=== PATIENT | female | born 1990 | race African-American/Black ===

== ENCOUNTER 2016-07-10 17:45 | Emergency (ER) | payer BC, OTHER ==
[2016-07-10 17:49] VITALS: BP 145/93; PULSE 87; TEMP 97.7; BMI 31.6
--- NOTE | 2016-07-10 18:34 | PDOC ---
History of Present Illness - General Chief Complaint: Pain Stated Complaint: BACK PAIN Time Seen by Provider: 07/10/16 18:11 History Source: Patient Exam Limitations: No Limitations - History of Present Illness Initial Comments: CHIEF COMPLAINT: 25 y/o afebrile female with PMH "kidney infections" c/o left side and pelvic pain since yesterday. HISTORY OF PRESENT ILLNESS: The patient states the pain was intermittent but around 2pm it became constant and she rates it an 8/10. She denies f/c, n/v/d, CP, SOB, hematuria, dysuria, increased urinary frequency. her informs me that this happens every few months, after completion of her menstrual cycle. The patient refused to take OTC medication because she hates to take pills. Vital signs on arrival are within normal limits. REVIEW OF SYSTEMS: GENERAL/CONSTITUTIONAL: No fever/chills. No weakness. No weight change. HEAD, EYES, EARS, NOSE AND THROAT: No change in vision. No ear pain or discharge. No sore throat. CARDIOVASCULAR: No chest pain or shortness of breath. RESPIRATORY: No cough, wheezing, or hemoptysis. GASTROINTESTINAL: +left side and pelvic pain. No nausea, vomiting, diarrhea, constipatin. GENITOURINARY: No dysuria, frequency, or change in urination. MUSCULOSKELETAL: No joint or muscle swelling or pain. No neck or back pain. SKIN: No rash or easy bruising. NEUROLOGIC: No headache, vertigo, loss of consciousness, or loss of sensation. PHYSICAL EXAM: GENERAL: The patient is awake, alert, and fully oriented, in no acute distress. SHe is well appearing and ambulatory. HEAD: Normal with no signs of trauma. ENT: Pupils equal, round and reactive to light, extraocular movements intact, sclera anicteric, conjunctiva clear. Neck supple. LUNGS: Clear to auscultation bilaterally. Normal excursion. No respiratory distress or use of accessory muscles. CV: RRR, S1/S2, no MRG. Cap refill < 2 sec. ABDOMEN: Soft, non-distended, TTP of left pelvic region. Pain with palpation of left flank BACK: No CVA TTP b/l. EXTREMITIES: Normal range of motion, no edema. NEUROLOGICAL: Normal speech, normal gait. CN II-XII grossly intact. PSYCH: Normal mood, normal affect. SKIN: Warm, dry, normal turgor, no rashes or lesions noted. Past History - Past Medical History Allergies/Adverse Reactions: Allergies Allergy/AdvReac Type Severity Reaction Status Date / Time No Known Allergies Allergy Verified 07/10/16 17:47 Home Medications: Ambulatory Orders Cephalexin Monohydrate [Keflex -] 500 mg PO BID #14 capsule 12/18/14 Cephalexin Monohydrate [Keflex -] 500 mg PO BID #14 capsule 07/10/16 - Immunization History Immunization Up to Date: Yes - Psycho/Social/Smoking Cessation Hx Anxiety: No Suicidal Ideation: No Smoking History: Current some day smoker Have you smoked in the past 12 months: Yes Number of Cigarettes Smoked Daily: 5 Information on smoking cessation initiated: No Hx Alcohol Use: No Drug/Substance Use Hx: No Substance Use Type: None *Physical Exam - Vital Signs Last Vital Signs Temp Pulse Resp BP Pulse Ox 97.7 F 87 18 145/93 100 07/10/16 17:47 07/10/16 17:47 07/10/16 17:47 07/10/16 17:47 07/10/16 17:47 Medical Decision Making - Medical Decision Making A/P: 25 y/o afebrile female here for suspected kidney infection. However, she has no urinary complaints. I suspect she has ovarian cysts. Plan is as follows : 1. hcg/UA/culture 2. Transvaginal Ultrasound hcg - negative PO Motrin Transvaginal Ultrasound IMPRESSION: Unremarkable exam UA with Positive Nitrite and 3+ leuks. Will treat for UTI. Sent rx for keflex to her pharmacy and instructed to take entire course. Instructed her to drink at least 64oz of water daily and f/u with her doctor within 1 week. Instructed her to return to the ER with any worsening or concerning symptoms. The patient verbalizes understanding of all instructions, has no further questions and is awaiting discharge. *DC/Admit/Observation/Transfer Diagnosis at time of Disposition: UTI (urinary tract infection) Qualifiers: Urinary tract infection type: acute cystitis Hematuria presence: without hematuria Qualified Code(s): N30.00 - Acute cystitis without hematuria - Discharge Dispostion Disposition: HOME Condition at time of disposition: Good - Prescriptions Prescriptions: Cephalexin Monohydrate [Keflex -] 500 mg PO BID #14 capsule - Referrals Referrals: Julia Pelayo MD [Primary Care Provider] - 1 week - Patient Instructions Printed Discharge Instructions: DI for Urinary Tract Infection (UTI) Additional Instructions: Discharge Instructions: -You have a Urinary tract infection. You do not have a kidney infection -Please take Motrin for pain -Please take the prescription antibiotics as prescribed and complete entire 7 days -Drink at least 64oz of water daily -Follow up with your doctor within 1 week -Return to the ER with any worsening or concerning symptoms.
[2016-07-10 19:19] LABS: URINE APPEARANCE CLEAR; URINE BILIRUBIN NEGATIVE (NEGATIVE); URINE BLOOD NEGATIVE (NEGATIVE); URINE COLOR LTYELLOW; URINE GLUCOSE (UA) NEGATIVE (NEGATIVE); URINE KETONE NEGATIVE (NEGATIVE); URINE NITRITE POSITIVE (NEGATIVE); URINE PROTEIN NEGATIVE (NEGATIVE); URINE UROBILINOGEN NEGATIVE E.U./dl (0.2-1.0)
[2016-07-10 19:20] LABS: URINE LEUK ESTERASE 3+ (NEGATIVE)
[2016-07-10] MEDS ORDERED: IBUPROFEN 600 MG TABLET (FP) PO ONE ×2 (20:01→20:06)
[2016-07-11 15:16] LABS: URINE BACTERIA RARE /hpf (NEGATIVE); URINE WBC 16 (3-5)
[2016-07-11 15:17] LABS: URINE MUCUS RARE; URINE RBC 1 /hpf (0-3)
== END 2016-07-10 20:51 | disposition home or self-care (01) ==
LOC: JERFT 17:45
DX: N30.00 Acute cystitis without hematuria (principal)
CPT/HCPCS: 76830-TC; 81003; 81015; 84703; 87086; 87186; 99281-25